=== PATIENT | female | born 1980 ===

== ENCOUNTER 2018-07-31 23:42 | Emergency (ER) | payer OTHER ==
[~2018-07-31] VITALS: Ht 167.6 cm; Wt 63.5 kg
--- OUTSIDE RECORDS SUMMARY | 2018-07-31 23:50 | XMS REPORT | Continuity of Care Document ---
Author Author [facility] Organization [facility] Address Unknown Phone Unavailable Allergies Active Description Code Type Severity Reaction Onset Reported/Identified Relationship to Patient Clinical Status Yes Penicillins Drug Allergy N/A N/A 02/19/2013 Medications There is no data. Problems Date Dx Coded Attending Type Code Diagnosis Diagnosed By 02/19/2013 SHONA RODRIGUEZ APRN 692.2 CONTACT DERMATITIS AND OTHER ECZEMA DUE TO SOLVENTS 02/19/2013 PHILIPPE JAVIER APRN 692.2 CONTACT DERMATITIS AND OTHER ECZEMA DUE TO SOLVENTS 02/19/2013 JEWELL WEBER DO 692.2 CONTACT DERMATITIS AND OTHER ECZEMA DUE TO SOLVENTS 08/09/2013 SHONA RODRIGUEZ APRN N 034.0 STREPTOCOCCAL SORE THROAT 08/09/2013 SHONA RODRIGUEZ APRN N 780.60 FEVER UNSPECIFIED 08/09/2013 PHILIPPE JAVIER APRN R 034.0 STREPTOCOCCAL SORE THROAT 08/09/2013 PHILIPPE JAVIER APRN R 780.60 FEVER UNSPECIFIED 08/09/2013 JEWELL WEBER DO 034.0 STREPTOCOCCAL SORE THROAT 08/09/2013 JEWELL WEBER DO 780.60 FEVER UNSPECIFIED 06/06/2014 PHILIPPE JAVIER APRN R 626.4 IRREGULAR MENSTRUAL CYCLE 06/06/2014 PHILIPPE JAVIER APRN R V04.81 FLU SHOT 06/06/2014 PHILIPPE JAVIER APRN R V70.0 ROUTINE GENERAL MEDICAL EXAMINATION AT A HEALTH CARE FACILITY 06/06/2014 JEWELL WEBER DO 626.4 IRREGULAR MENSTRUAL CYCLE 06/06/2014 JEWELL WEBER DO V04.81 FLU SHOT 06/06/2014 JEWELL WEBER DO V70.0 ROUTINE GENERAL MEDICAL EXAMINATION AT A HEALTH CARE FACILITY 06/25/2014 JEWELL WEBER DO 724.2 LUMBAGO/ LOW BACK PAIN 06/25/2014 JEWELL WEBER DO V72.31 EDUCATIONAL SPEECH LANGUAGE CLINICIAN EXAM, ROUTINE 06/25/2014 JEWELL WEBER DO V73.81 HPV SCREENING 06/25/2014 JEWELL WEBER DO V74.5 STD SCREEN 06/25/2014 JEWELL WEBER DO V76.10 BREAST CANCER SCREENING 06/25/2014 JEWELL WEBER DO V76.2 CERVICAL CANCER SCREENING (PAP SMEAR) Procedures Code Description Performed By Performed On J0696 ROCEPHIN INJ 1 g 08/09/2013 43261 INFLUENZA A & B (IN-HOUSE) 08/09/2013 40534 STREP A (IN-HOUSE) 08/09/2013 19240 ROUTINE VENIPUNCTURE 06/25/2014 79271 TRICHOMONAS (IN-HOUSE) 06/25/2014 66484 LIPID PANEL 06/25/2014 34498 CBC 06/25/2014 48369 CMP 06/25/2014 0264386 GFR CALC (RESULT ONLY) 06/25/2014 07712 TSH 06/25/2014 70733 INSULIN LEVEL 06/26/2014 44634 CULTURE UROGENITAL 06/26/2014 64669 GC/CHLAM PROBE (STATE) 06/27/2014 23597 PAP SMEAR 06/27/2014 Q0091 PAP SMEAR OBTAIN SMEAR 06/27/2014 Results Test Result Range TSH+Free T4 - 11/19/16 11:56 TSH 1.370 uIU/mL 0.450-4.500 T4,Free(Direct) 1.25 ng/dL 0.82-1.77 CBC With Differential/Platelet - 11/19/16 11:56 WBC 6.2 x10E3/uL 3.4-10.8 RBC 4.68 x10E6/uL 3.77-5.28 Hemoglobin 10.8 g/dL 11.1-15.9 Hematocrit 34.5 % 34.0-46.6 MCV 74 fL 79-97 MCH 23.1 pg 26.6-33.0 MCHC 31.3 g/dL 31.5-35.7 RDW 16.9 % 12.3-15.4 Platelets 266 x10E3/uL 150-379 Neutrophils 52 % Lymphs 37 % Monocytes 9 % Eos 1 % Basos 1 % Neutrophils (Absolute) 3.3 x10E3/uL 1.4-7.0 Lymphs (Absolute) 2.3 x10E3/uL 0.7-3.1 Monocytes(Absolute) 0.6 x10E3/uL 0.1-0.9 Eos (Absolute) 0.1 x10E3/uL 0.0-0.4 Baso (Absolute) 0.0 x10E3/uL 0.0-0.2 Immature Granulocytes 0 % Immature Grans (Abs) 0.0 x10E3/uL 0.0-0.1 Comp. Metabolic Panel (14) - 11/19/16 11:56 Glucose, Serum 86 mg/dL 65-99 BUN 9 mg/dL 6-20 Creatinine, Serum 0.79 mg/dL 0.57-1.00 eGFR If NonAfricn Am 97 mL/min/1.73 >59 eGFR If Africn Am 112 mL/min/1.73 >59 BUN/Creatinine Ratio 11 9-23 Sodium, Serum 142 mmol/L 134-144 Potassium, Serum 4.6 mmol/L 3.5-5.2 Chloride, Serum 104 mmol/L 96-106 Carbon Dioxide, Total 23 mmol/L 18-29 Calcium, Serum 9.0 mg/dL 8.7-10.2 Protein, Total, Serum 7.2 g/dL 6.0-8.5 Albumin, Serum 4.2 g/dL 3.5-5.5 Globulin, Total 3.0 g/dL 1.5-4.5 A/G Ratio 1.4 1.2-2.2 Bilirubin, Total 0.4 mg/dL 0.0-1.2 Alkaline Phosphatase, S 48 IU/L 39-117 AST (SGOT) 11 IU/L 0-40 ALT (SGPT) 8 IU/L 0-32 Lipid Panel - 11/19/16 11:56 Cholesterol, Total 155 mg/dL 100-199 Triglycerides 59 mg/dL 0-149 HDL Cholesterol 48 mg/dL >39 VLDL Cholesterol Saurav 12 mg/dL 5-40 LDL Cholesterol Calc 95 mg/dL 0-99 TSH - 06/09/17 10:09 TSH 2.90 mIU/L NRG TSH - 01/11/18 09:43 TSH 3.14 mIU/L NRG Encounters ACCT No. Visit Date/Time Discharge Status Pt. Type Provider Facility Loc./Unit Complaint [id number] 02/04/2014 23:03:00 02/05/2014 01:31:00 DIS Emergency [id number] 01/11/2018 09:00:00 01/11/2018 23:59:59 CLS Outpatient ZOYA CURRY APRN [facility] [id number] 01/11/2018 09:00:00 Document Registration [id number] 06/09/2017 09:20:00 Document Registration [id number] 11/20/2016 09:10:00 Document Registration [id number] 06/25/2014 10:06:00 06/25/2014 23:59:59 CLS Outpatient JEWELL WEBER DO [id number] 06/06/2014 11:01:00 06/06/2014 23:59:59 CLS Outpatient PHILIPPE JAVIER APRN [id number] 08/09/2013 11:44:00 08/09/2013 23:59:59 CLS Outpatient SHONA RODRIGUEZ APRN
[2018-08-01] MEDS ORDERED: NITROGLYCERIN 0.4 MG SL TABS BTL 25'S SL PRN (00:15)
[2018-08-01] MEDS ORDERED: ASPIRIN 81 MG CHEW (CHILDREN'S ASA) PO ONE (00:15)
[2018-08-01 00:28] LABS: BASOPHILS % (AUTO) 0 % (0-10); EOSINOPHILS % (AUTO) 1 % (0-10); HEMATOCRIT 37 % (35-52); HEMOGLOBIN 13.2 G/DL (11.5-16.0); LYMPHOCYTES # (AUTO) 2.5 X 10^3 (1.0-4.0); LYMPHOCYTES % (AUTO) 34 % (12-44); MEAN CORPUSCULAR HEMOGLOBIN 30 PG (25-34); MEAN CORPUSCULAR HGB CONC 36 G/DL (32-36); MEAN CORPUSCULAR VOLUME 85 FL (80-99); MEAN PLATELET VOLUME 11.4 FL (7.4-10.4); MONOCYTES # (AUTO) 0.6 X 10^3 (0.0-1.0); MONOCYTES % (AUTO) 8 % (0-12); NEUTROPHILS # (AUTO) 4.2 X 10^3 (1.8-7.8); NEUTROPHILS % (AUTO) 58 % (42-75); PLATELET COUNT 280 10^3/uL (130-400); RED BLOOD COUNT 4.37 10^6/uL (4.35-5.85); RED CELL DISTRIBUTION WIDTH 12.3 % (10.0-14.5); WHITE BLOOD COUNT 7.3 10^3/uL (4.3-11.0)
[2018-08-01 00:34] LABS: INR 0.9 (0.8-1.4); PROTHROMBIN TIME PATIENT 12.4 SEC (12.2-14.7)
[2018-08-01 00:43] LABS: ALANINE AMINOTRANSFERASE 18 U/L (0-55); ALBUMIN 4.5 GM/DL (3.2-4.5); ALKALINE PHOSPHATASE 49 U/L (40-136); AMYLASE 55 U/L (25-125); BILIRUBIN,TOTAL 0.2 MG/DL (0.1-1.0); BUN/CREATININE RATIO 22; CALCIUM 8.9 MG/DL (8.5-10.1); CARBON DIOXIDE 23 MMOL/L (21-32); CHLORIDE 106 MMOL/L (98-107); CREATINE KINASE 59 U/L (29-168); CREATININE SERUM 0.76 MG/DL (0.60-1.30); GFR ESTIMATED > 60; GLUCOSE 104 MG/DL (70-105); LIPASE 52 U/L (8-78); MAGNESIUM 2.1 MG/DL (1.8-2.4); POTASSIUM 3.5 MMOL/L (3.6-5.0); SODIUM 138 MMOL/L (135-145); TOTAL PROTEIN 7.5 GM/DL (6.4-8.2)
[2018-08-01 00:50] LABS: CREATINE KINASE MB 1.2 NG/ML (<6.6); MYOGLOBIN SERUM 19.7 NG/ML (10.0-92.0)
[2018-08-01] MEDS ORDERED: KETOROLAC 30 MG/ML VIAL IVP ONE (01:30)
[2018-08-01] MEDS ORDERED: NAPR-915 PO (02:40)
--- NOTE | 2018-08-01 02:41 | ED Chest Pain ---
General Chief Complaint: Chest Pain Stated Complaint: CP-LEFT UPPER SIDE Nursing Triage Note: PT AMB TO ROOM #6 W/O DIFFICULTY. A&OX4. PT SPEAKS MINIMAL SET[place]NA AND HAS NEPHEW @ SIDE TRANSLATING. PT NEPHEW REPORTS WHILE @ WORK @ APPROX 2100 ON THIS EVENING PT DEVELOPED NONRAIDATING LT SIDE CHEST DISCOMFORT THAT LASTED APPROX 30MIN. PT DENIES CURRENT CHEST PAIN @ THIS TIME. PT REPORTS SHE CONTINUES TO FEEL LH AND SHAKY. PT REPORTS SHE HAS NEVER EXPERIENCED CHEST PAIN PRIOR TO THIS EVENT. Nursing Sepsis Screen: No Definite Risk Allergies and Home Medications Allergies Coded Allergies: Penicillins (Unverified Allergy, Unknown, 02/04/14) Home Medications No Active Prescriptions or Reported Meds Past Covnlgb-Yqivgn-Jtaxxk Hx Patient Social History Alcohol Use: Denies Use Recreational Drug Use: No Smoking Status: Never a Smoker 2nd Hand Smoke Exposure: No Recent Foreign Travel: No Contact w/Someone Who Travel: No Recent Infectious Disease Expo: No Physical Abuse: No Sexual Abuse: No Past Medical History Surgeries: Yes Tubal Ligation Respiratory: No Cardiac: No Neurological: No Reproductive Disorders: No 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 oz. 63.871558be; BMI Method:Stated Progress/Results/Core Measures Results/Orders Lab Results Laboratory Tests Test 08/01/18 00:00 Range/Units White Blood Count 7.3 4.3-11.0 10^3/uL Red Blood Count 4.37 4.35-5.85 10^6/uL Hemoglobin 13.2 11.5-16.0 G/DL Hematocrit 37 35-52 % Mean Corpuscular Volume 85 80-99 FL Mean Corpuscular Hemoglobin 30 25-34 PG Mean Corpuscular Hemoglobin Concent 36 32-36 G/DL Red Cell Distribution Width 12.3 10.0-14.5 % Platelet Count 280 130-400 10^3/uL Mean Platelet Volume 11.4 H 7.4-10.4 FL Neutrophils (%) (Auto) 58 42-75 % Lymphocytes (%) (Auto) 34 12-44 % Monocytes (%) (Auto) 8 0-12 % Eosinophils (%) (Auto) 1 0-10 % Basophils (%) (Auto) 0 0-10 % Neutrophils # (Auto) 4.2 1.8-7.8 X 10^3 Lymphocytes # (Auto) 2.5 1.0-4.0 X 10^3 Monocytes # (Auto) 0.6 0.0-1.0 X 10^3 Eosinophils # (Auto) 0.0 0.0-0.3 10^3/uL Basophils # (Auto) 0.0 0.0-0.1 10^3/uL Prothrombin Time 12.4 12.2-14.7 SEC INR Comment 0.9 0.8-1.4 Activated Partial Thromboplast Time 30 24-35 SEC Sodium Level 138 135-145 MMOL/L Potassium Level 3.5 L 3.6-5.0 MMOL/L Chloride Level 106 98-107 MMOL/L Carbon Dioxide Level 23 21-32 MMOL/L Anion Gap 9 5-14 MMOL/L Blood Urea Nitrogen 17 7-18 MG/DL Creatinine 0.76 0.60-1.30 MG/DL Estimat Glomerular Filtration Rate > 60 BUN/Creatinine Ratio 22 Glucose Level 104 70-105 MG/DL Calcium Level 8.9 8.5-10.1 MG/DL Corrected Calcium 8.5 8.5-10.1 MG/DL Magnesium Level 2.1 1.8-2.4 MG/DL Total Bilirubin 0.2 0.1-1.0 MG/DL Aspartate Amino Transf (AST/SGOT) 19 5-34 U/L Alanine Aminotransferase (ALT/SGPT) 18 0-55 U/L Alkaline Phosphatase 49 40-136 U/L Total Creatine Kinase 59 29-168 U/L Creatine Kinase MB 1.2 <6.6 NG/ML Myoglobin 19.7 10.0-92.0 NG/ML Troponin I < 0.028 <0.028 NG/ML B-Type Natriuretic Peptide < 10.0 <100.0 PG/ML Total Protein 7.5 6.4-8.2 GM/DL Albumin 4.5 3.2-4.5 GM/DL Amylase Level 55 25-125 U/L Lipase 52 8-78 U/L Serum Test, Qualitative NEGATIVE NEGATIVE My Orders Orders - ELYSE,CHITO K DO Cbc With Automated Diff (08/01/18 00:12) Magnesium (08/01/18 00:12) Chest 1 View, Ap/Pa Only (08/01/18 00:12) Ekg Tracing (08/01/18 00:12) Cardiac Profile 1 (08/01/18 00:12) Comprehensive Metabolic Panel (08/01/18 00:12) Myoglobin Serum (08/01/18 00:12) Protime With Inr (08/01/18 00:12) Partial Thromboplastin Time (08/01/18 00:12) O2 (08/01/18 00:12) Monitor-Rhythm Ecg Trace Only (08/01/18 00:12) Lipid Panel (08/02/18 06:00) Aspirin Chewable Tablet (Baby Aspirin Ch (08/01/18 00:15) Nitroglycerin 0.4 Mg Btl 25's (Nitrostat (08/01/18 00:15) Saline Lock/Iv-Start (08/01/18 00:12) Creatine Kinase (08/01/18 00:12) Creatine Kinase Mb (08/01/18 00:12) Lipase (08/01/18 00:12) Amylase (08/01/18 00:12) BNP (08/01/18 00:12) Hcg,Qualitative Serum (08/01/18 00:12) Ketorolac Injection (Toradol Injection) (08/01/18 01:30) Medications Given in ED Current Medications Medications Dose Ordered Sig/Jeison Route Start Time Stop Time Status Last Admin Dose Admin Aspirin 324 mg ONCE ONCE PO 08/01/18 00:15 08/01/18 00:16 DC 08/01/18 00:39 324 MG Ketorolac Tromethamine 30 mg ONCE ONCE IVP 08/01/18 01:30 08/01/18 01:31 DC 08/01/18 01:34 30 MG Vital Signs/I&O 07/31/18 07/31/18 23:53 23:53 Temp 97.1 Pulse 64 Resp 16 B/P (MAP) 125/79 (94) Pulse Ox 99 O2 Delivery Room Air Room Air Blood Pressure Mean: 94 Departure Impression Primary Impression: Chest pain Disposition: 01 HOME, SELF-CARE Condition: Improved Departure-Patient Inst. Referrals: [facility] (PCP) Primary Care Physician Patient Instructions: Chest Pain That Is Not Caused by the Heart (DC), Chest Pain (DC) Add. Discharge Instructions: HOME, REST FOLLOW UP WITH YOUR DR THIS WEEK FOR FURTHER CARE--CALL IN AM FOR APPOINTMENT RETURN TO ER IF WORSE All discharge instructions reviewed with patient and/or family. Voiced understanding. Scripts Naproxen (Naproxen) 500 Mg Tablet 500 MG PO BID, #20 TAB Prov: CHITO PAPPAS DO 08/01/18 CHITO PAPPAS DO Aug 01, 2018 02:41
[2018-08-01 03:00] VITALS: BP 121/83
--- NOTE | 2018-08-01 06:45 | Diagnostic Imaging Report ---
INDICATION: Chest pain COMPARISON: 02/04/2014 FINDINGS: Frontal view of the chest demonstrate clear lungs bilaterally. The heart size is normal. There is no pneumothorax. Osseous structures are normal. IMPRESSION: No acute findings. Normal chest. Dictated by: Dictated on workstation # [id number]
== END 2018-08-01 03:00 | disposition home or self-care (01) ==
LOC: EDUNIT# 23:42 → ER 23:46
DX: R07.9 Chest pain, unspecified (principal); E03.9 Hypothyroidism, unspecified; Z88.0 Allergy status to penicillin; Z79.51 Long term (current) use of inhaled steroids
CPT/HCPCS: 36415; 71045; 80053; 82150; 82550; 82553; 83690; 83735; 83874; 83880; 84484; 84703; 85025; 85610; 85730; 93005; 93041; 96374